=== PATIENT | male | born 1980 | race Caucasian/White ===

== ENCOUNTER → 2021-12-04 | Outpatient (CLI) | payer OTHER ==
[2021-12-04 12:04] LABS: HEMOGLOBIN 14.8 gm/dl (14.0-17.5); RED BLOOD COUNT 4.89 M/UL (4.20-5.50); WHITE BLOOD COUNT 13.9 K/UL (4.5-11.0)
[2021-12-04 12:25] LABS: BUN/CREATININE RATIO 18 (0-10)
== END ==
LOC: LAB 11:08
PROVIDERS: Nurse Practitioner Family
DX: I10 Essential (primary) hypertension (principal); E11.65 Type 2 diabetes mellitus with hyperglycemia; E78.5 Hyperlipidemia, unspecified; E53.8 Deficiency of other specified B group vitamins; E55.9 Vitamin D deficiency, unspecified
CPT/HCPCS: 36415; 80053; 80061; 82570; 82607; 83036; 84156; 84439; 84443; 85025

== ENCOUNTER → 2022-03-12 | Outpatient (CLI) | payer OTHER ==
[2022-03-12 12:39] LABS: HEMOGLOBIN 14.2 gm/dl (14.0-17.5); RED BLOOD COUNT 4.83 M/UL (4.20-5.50); WHITE BLOOD COUNT 6.5 K/UL (4.5-11.0)
[2022-03-12 13:13] LABS: BUN/CREATININE RATIO 32 (0-10)
== END ==
LOC: LAB 11:51
PROVIDERS: Nurse Practitioner Family
DX: M62.838 Other muscle spasm (principal); I10 Essential (primary) hypertension; E78.5 Hyperlipidemia, unspecified; E53.8 Deficiency of other specified B group vitamins; E55.9 Vitamin D deficiency, unspecified; E11.9 Type 2 diabetes mellitus without complications
CPT/HCPCS: 36415; 80053; 80061; 82570; 82607; 83735; 84156; 84439; 84443; 85025